=== PATIENT | female | born 1985 ===

== ENCOUNTER 2024-06-08 06:35 | Day surgery (SDC) | payer OTHER ==
[2024-06-08] MEDS ORDERED: MIDAZOLAM HCL 2 MG/2 ML VIAL IV ONE (08:45)
[2024-06-08] MEDS ORDERED: fentaNYL CITRATE 50 MCG/ML AMPUL IV PUSH ONE (08:45)
[2024-06-08] MEDS ORDERED: DIPHENHYDRAMINE HCL 50 MG/ML VIAL 1ML IV ONE (08:45)
== END 2024-06-08 10:15 | disposition home or self-care (01) ==
LOC: AMB-ENDOS 06:35
PROVIDERS: ATTEND Colon & Rectal Surgery
DX: D12.2 Benign neoplasm of ascending colon (principal); K63.5 Polyp of colon